=== PATIENT | female | born 1970 | race Caucasian/White ===

== ENCOUNTER 2017-10-26 20:46 | Observation (INO) | payer MEDICARE, MEDICAID ==
[~2017-10-26] VITALS: Ht 162.6 cm; Wt 72.6 kg
[2017-10-26 21:37] LABS: Basophils # (auto) 0 uL; Basophils % (auto) 0.8 % (0.0-2.0); Eosinophils # (auto) 0.1 uL; Eosinophils % (auto) 1.5 % (0.0-7.0); Hematocrit 38.7 % (36.0-46.0); Hemoglobin 13.1 g/dL (12.2-16.2); Lymphocytes # (auto) 1.5 uL; Lymphocytes % (auto) 33.8 % (10.0-50.0); Mean Corpuscular Hemoglobin 31.3 pg (28.0-32.0); Mean Corpuscular Hgb Conc. 33.9 g/dL (32.0-36.0); Mean Corpuscular Volume 92.2 fL (80.0-100.0); Monocytes # (auto) 0.4 uL; Monocytes % (auto) 8.7 % (0.0-12.0); Neutrophils # (auto) 2.5 uL; Neutrophils % (auto) 55.2 % (37.0-80.0); Nucleated Red Blood Cells % 0.1 %; Platelet Count (auto) 202 10^3/uL (140-450); Red Cell Distribution Width 13.3 % (11.8-14.3); White Blood Cell 4.5 10^3/uL (4.4-10.8)
[2017-10-26 21:49] LABS: Urine Bacteria NONE SEEN /hpf (None Seen); Urine Blood Negative /uL (Negative); Urine Specific Gravity 1.021 (1.001-1.035); Urine WBC <1 /hpf (0 - 5)
[2017-10-26 21:50] LABS: Albumin 3.4 g/dL (3.4-5.0); BUN/Creatinine Ratio 21.1; Potassium 4.3 mmol/L (3.5-5.1)
[2017-10-26 21:53] LABS: Bilirubin, Total 0.3 mg/dL (0.2-1.0)
[2017-10-27] MEDS ORDERED: SODIUM CHLORIDE 0.9% 1,000 ML IV ONE (01:30)
[2017-10-27] MEDS ORDERED: NALBUPHINE HCL 10 MG/1ml INJECTION IV ONE (01:30)
[2017-10-27] MEDS ORDERED: ONDANSETRON HCL 4 MG/2 ML VIAL IV ONE (01:30)
[2017-10-27 01:56] VITALS: BP 101/67
== END 2017-10-27 02:31 | disposition home or self-care (01) | DRG 443 ==
LOC: ER 20:46 → OVERFLOW 20:47 → ER 10-27 02:31
PROVIDERS: ADMIT Emergency Medicine; ATTEND Emergency Medicine
DX: R16.2 Hepatomegaly with splenomegaly, not elsewhere classified (principal); R10.32 Left lower quadrant pain
CPT/HCPCS: 36415; 74176; 80053; 81001; 82150; 83690; 85025; 96361; 96374; 96375; 99285; G0378; J2300; J2405; J7030

== ENCOUNTER 2018-05-05 16:42 | Emergency (ER) | payer OTHER, MEDICAID ==
[~2018-05-05] VITALS: Ht 160 cm; Wt 63.5 kg
[2018-05-05 17:22] VITALS: BP 152/91
[2018-05-05] MEDS ORDERED: LORazepam 0.5 MG TAB PO ONE (18:45)
[2018-05-05] MEDS ORDERED: cefTRIAXone SOD 1,000 MG VL IM ONE (18:45)
[2018-05-05] MEDS ORDERED: methylPREDNISolone SOD SUCC 125 MG/2 ML VL IM ONE (18:45)
== END 2018-05-05 19:24 | disposition home or self-care (01) ==
LOC: EDBD 16:42 → ER 16:47 → EDBD 16:47 → MERGE 16:47 → ER 19:24
DX: H66.93 Otitis media, unspecified, bilateral (principal); R42 Dizziness and giddiness; J02.9 Acute pharyngitis, unspecified
CPT/HCPCS: 96372; 99283; J0696; J2930